=== PATIENT | female | born 1985 | race Caucasian/White ===

== ENCOUNTER 2016-08-07 08:17 | Emergency (ER) | payer BC ==
[2016-08-07] MEDS ORDERED: Lidocaine 2% VISCOUS* 15 ML UDC PO ONE (09:07)
--- NOTE | 2016-08-07 09:24 | UC ---
Leta Coello Salem, scribed for Jennifer Mercer MD on 08/07/16 at 0907 . Throat Pain/Nasal Carlos HPI - HPI Summary HPI Summary: Patient is a 31 y/o female who presents to the with a sore throat and abd pain since more than 4 days ago. She states that she was in the UC 4 days ago for similar sx and tested positive for Influenza B. She reports increased coughing with pain in the throat. She also reports congestion, a subjective fever, nausea, and lower abd pain. Pt with decreased appetite. She is taking Tamiflu for the flu (not today) and Tylenol (which has not been helping the abd pain). She reports drinking tea with honey for the sore throat with mild alleviation and that PO intake has been unchanged from baseline as a result of sx. She denies dysuria, hematuria, or vaginal LOF. 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 LMP was May 27, 2016 and she is 10 weeks, 2 days by dates . Pt is . She had a demise at 38 weeks approximately 1 year ago. She has not seen her RESIDENTIAL SERVICE TECHNICIAN yet, but is scheduled to in 11 days (08/18/16). Patients medication reviewed this visit. Pt takes Levothyroxine. - History of Current Complaint Chief Complaint: UCGeneralIllness Stated Complaint: SORE THROAT ABD PAIN Time Seen by Provider: 08/07/16 08:36 Hx Obtained From: Patient Hx Last Menstrual Period: 05/27/16 Onset/Duration: Gradual Onset, Lasting Days, Still Present Severity: Moderate Cough: Nonproductive Associated Signs & Symptoms: Positive: Fever, Other - Congestion. - Allergies/Home Medications Allergies/Adverse Reactions: Allergies Allergy/AdvReac Type Severity Reaction Status Date / Time No Known Allergies Allergy Verified 08/07/16 08:26 Home Medications: Home Medications Levothyroxine TAB* [Synthroid TAB*] 50 mcg PO 08/07/16 [History] Oseltamivir CAP* [Tamiflu CAP*] 30 mg PO BID 08/07/16 [History Confirmed ] PMH/Surg Hx/FS Hx/Imm Hx Previously Healthy: Yes Endocrine History Of: Reports: Thyroid Disease - hoshimotos; goiter Cardiovascular History Of: Denies: Cardiac Disorders, Hypertension Respiratory History Of: Denies: COPD - Surgical History Surgical History: None - Family History Known Family History: Positive: Hypertension, Renal Disease - kidney stones - Social History Occupation: Employed Full-time - cross fit Alcohol Use: None Substance Use Type: None Smoking Status (MU): Former Smoker Review of Systems Constitutional: Fever Skin: Negative Eyes: Negative ENT: Sore Throat Respiratory: Cough Cardiovascular: Negative Gastrointestinal: Abdominal Pain, Other - Nausea. Genitourinary: Negative Motor: Negative Neurovascular: Negative Musculoskeletal: Negative Neurological: Negative Psychological: Negative All Other Systems Reviewed And Are Negative: Yes Physical Exam Triage Information Reviewed: Yes Completion Of Physical Exam Limited Due To: Altered Mental Status Appearance: Well-Appearing, No Pain Distress, Well-Nourished Vital Signs: Initial Vital Signs Temp 99.1 F 08/07/16 08:21 Pulse 67 08/07/16 08:21 Resp 18 08/07/16 08:21 BP 110/69 08/07/16 08:21 Pulse Ox 100 08/07/16 08:21 Vital Signs Reviewed: Yes Eye Exam: Normal Eyes: Positive: Conjunctiva Clear ENT Exam: Normal ENT: Positive: TMs normal. Negative: Pharynx normal - erythema, no exudate, no fullness; uvula midline Dental Exam: Normal Neck exam: Normal Neck: Positive: Supple, Nontender, No Lymphadenopathy Respiratory Exam: Normal Respiratory: Positive: Lungs clear Cardiovascular Exam: Normal Cardiovascular: Positive: RRR, No Murmur Abdominal Exam: Normal Abdomen Description: Negative: Nontender - + TTP LLQ no guarding, no rebound, no distension soft + BS Bowel Sounds: Positive: Present Musculoskeletal Exam: Normal Neurological Exam: Normal Neurological: Positive: Alert, Muscle Tone Normal Psychological Exam: Normal Skin Exam: Normal Throat Pain/Nasal Course/Dx - Course Assessment/Plan: PT recently dx with influenza B - pt on Tamiflu. Pt is 10 week by dates - no care yet this - pt with pain in LLQ increasing x 4 days with nausea. Will check throat for strep. viscous lidocaine for symptomatic relief. Will refer to [facility] for ultrasound to eval for ectopic and health - pt comfortable and in agreement with plan. Spoke with Dr. Palafox - [facility] - accepting pt in transfer for further eval - Differential Dx/Diagnosis Provider Diagnoses: pharyngitis. adominal pain. 1st trimester Discharge - Discharge Plan Condition: Stable Disposition: TRANS HIGHER LVL OF CARE FAC Discharge Disposition Comment: pt referred to [facility] for ultrasound and further eval or abd pain Patient Education Materials: Pharyngitis (ED), Acute Abdominal Pain (ED), (ED) Additional Instructions: - Okay to gargle and salt with warm, salt water - Complete course of Tamiflu as previously prescribed - Stay well hydrated - avoid excess caffeine and alcohol - Okay to take Tylenol every 6 hours pain or fever - Cold fluids (popsicles, jello) may be soothing to your throat - Once you start to feel better, change your toothbrush and your pillowcase. These infections are spread by secretions - do NOT share eating or drinking utensils - clean items you share with other people such as iphone, computer mouse, TV remote, etc - Go directly to the emergency department at [facility] - they are expecting you for further evaluation of your The documentation as recorded by the Leat flor Salem accurately reflects the service I personally performed and the decisions made by me, Jennifer Mercer MD.
[2016-08-07 09:37] VITALS: BP 129/77
== END 2016-08-07 09:28 | disposition short-term general hospital (02) ==
LOC: UCEAST 08:17
DX: O26.891 Other specified pregnancy related conditions, first trimester (principal); Z3A.10 10 weeks gestation of pregnancy; J02.9 Acute pharyngitis, unspecified; R10.9 Unspecified abdominal pain
CPT/HCPCS: 87070; 87651; 99212; G0463

== ENCOUNTER 2016-08-07 09:50 | Emergency (ER) | payer BC ==
[2016-08-07] MEDS ORDERED: NS 0.9% 1000 ML* 1,000 ML IV ONE (10:04)
[2016-08-07 10:39] LABS: Add Diff/Slide Review? Slide Review Added; Comments Flag Yes; Hematocrit 41 % (35-47); Hemoglobin 14.1 g/dl (12.0-16.0); Mean Corpuscular HGB Conc 34 g/dl (31-36); Mean Corpuscular Hemoglobin 30 pg (27-31); Mean Corpuscular Volume 87 fL (80-97); Mean Platelet Volume 9 um3 (7.4-10.4); Red Blood Count 4.76 10^6/ul (4.0-5.4); Red Cell Distribution Width 13 % (10.5-15); White Blood Count 2.5 10^3/ul (3.5-10.8)
[2016-08-07 10:48] LABS: Budding Yeast Present (Absent); Urine Bacteria Absent (Absent); Urine Bilirubin Negative (Negative); Urine Glucose Negative (Negative); Urine Nitrite Negative (Negative)
[2016-08-07 12:06] LABS: Albumin 3.9 g/dL (3.2-5.2); BUN/Creatinine Ratio 12.5 (8-20); Calcium 8.7 mg/dL (8.6-10.3); EGFR African American 140.1 (>60); Globulin 2.6 g/dL (2-4); Potassium 3.8 mmol/L (3.5-5.0); Total Bilirubin 0.3 mg/dL (0.2-1.0); Total Protein 6.5 g/dL (6.4-8.9)
--- NOTE | 2016-08-07 13:44 | RAD ---
HISTORY: Lower abdominal pain, COMPARISONS: None relevant TECHNIQUE: Multiple transverse and longitudinal ultrasound images were obtained of the pelvis using grayscale, color Doppler, and M-Mode Doppler imaging using the transabdominal transducer. FINDINGS: UTERUS: The uterus is normal in shape, size, contour, and echotexture. GESTATION: There is a single live intrauterine gestation. The crown-rump length measures 2.89 cm for a gestational age of 9 weeks and 6 days. The PEPE is March 06, 2017. cardiac motion is detected at a rate of 174 beats per minute. Gross movement is identified. anatomy cannot be assessed secondary to early dates. The amniotic fluid is qualitatively normal. There is a small subchorionic hemorrhage measuring approximately 0.9 cm. CUL-DE-SAC: There is no free fluid within the cul-de-sac. RIGHT OVARY: The right ovary measures 3.7 x 2.5 x 1.8 cm. LEFT OVARY: The left ovary measures 3.1 x 1.8 x 4.6 cm. A corpus luteal body is noted. BLADDER: The visualized bladder is unremarkable. IMPRESSION: 1. SINGLE LIVE INTRAUTERINE GESTATION AT 9 WEEKS AND 6 DAYS BY CROWN-RUMP LENGTH. 2. SMALL SUBCHORIONIC HEMORRHAGE.
[2016-08-07 15:54] VITALS: BP 108/58
--- NOTE | 2016-08-18 13:24 | ED ---
Kashif Coello Janilya, scribed for Sheng Palafox MD on 08/07/16 at 1004 . Abdominal Pain/Female - HPI Summary HPI Summary: A 31 y/o female came in to [facility] presenting w/ a gradual onset of constant abd pain for about 3 days. She states she had flu this Tuesday, 08/04. She was seen at [facility] and prescribed TamiFlu which made pt feel better. Although, pt still felt congested, so she visited [facility] today for checkup. There, she discovered that she also has LLQ abd pain. Earlier she has been experiencing only lower abd pain bilaterally when coughing, but with pressure and palpation, she felt more pain in LLQ. Severity rated 2/10. Pt denies vaginal discharge, vaginal bleeding, vomiting, diarrhea. Pt is 10 weeks . /para/abortus . LNMP started May 27, 2016. - History of Current Complaint Chief Complaint: EDAbdPain Stated Complaint: ABD PAIN, COMMING FROM CC Time Seen by Provider: 08/07/16 09:57 Hx Obtained From: Patient Hx Last Menstrual Period: 05/27/16 ?: Yes Onset/Duration: Gradual Onset, Lasting Hours, Still Present Timing: Constant Severity Initially: Moderate Severity Currently: Moderate Pain Intensity: 2 Pain Scale Used: 0-10 Numeric Location: Discrete At: LLQ Radiates: Yes Radiates to: Other - lower abd bilaterally Character: Dull Aggravating Factor(s): Nothing Alleviating Factor(s): Nothing Associated Signs and Symptoms: Positive: Nausea. Negative: Vaginal Bleeding Allergies/Adverse Reactions: Allergies Allergy/AdvReac Type Severity Reaction Status Date / Time No Known Allergies Allergy Verified 08/07/16 09:54 PMH/Surg Hx/FS Hx/Imm Hx Previously Healthy: Yes Endocrine/Hematology History: Reports: Hx Thyroid Disease - hoshimotos; goiter Cardiovascular History: Denies: Hx Hypertension Respiratory History: Denies: Hx Chronic Obstructive Pulmonary Disease (COPD) Infectious Disease History: Denies: History Other Infectious Disease, Traveled Outside the [place] in Last 30 Days - Family History Known Family History: Positive: Hypertension, Renal Disease - kidney stones - Social History Alcohol Use: None Substance Use Type: Reports: None Smoking Status (MU): Former Smoker Review of Systems Positive: Abdominal Pain, Nausea. Negative: Vomiting, Diarrhea Genitourinary: Negative - pt denies vaginal bleeding Negative: discharge All Other Systems Reviewed And Are Negative: Yes Physical Exam - Summary Physical Exam Summary: VITAL SIGNS: Reviewed. GENERAL: Patient is a well developed and nourished female who is lying comfortable in the stretcher. Patient is not in any acute respiratory distress. HEAD AND FACE: Normocephalic and atraumatic. EYES: PERRLA, EOMI x 2, No injected conjunctiva. EARS: Hearing grossly intact. Ear canals and tympanic membranes are WNL. MOUTH: Oropharynx within normal limits. NECK: Supple, trachea is midline, no adenopathy, no JVD. CHEST: Symmetric, no tenderness at palpation LUNGS: Clear to auscultation bilaterally. No wheezing or crackles. CVS: RRR,, S1 and S2 present, no murmurs or gallops appreciated. ABDOMEN: Soft, mild lower abdominal tenderness. No signs of distention. Positive bowel sounds. No rebound no guarding, and no masses palpated. No abdominal bruit or pulsations. EXTREMITIES: FROM in all major joints, no edema, no cyanosis or clubbing. NEURO: Alert and oriented x 3. No acute neurological deficits. Speech is normal. SKIN: Dry and warm Triage Information Reviewed: Yes Vital Signs On Initial Exam: Initial Vitals Temp Pulse Resp BP Pulse Ox 97.6 F 69 15 134/68 100 08/07/16 09:51 08/07/16 09:51 08/07/16 09:51 08/07/16 09:51 08/07/16 09:51 Vital Signs Reviewed: Yes Diagnostics - Vital Signs Vital Signs Temp Pulse Resp BP Pulse Ox 08/07/16 09:51 97.6 F 69 15 134/68 100 - Laboratory Result Diagrams: 08/07/16 10:26 08/07/16 10:26 Lab Statement: Any lab studies that have been ordered have been reviewed, and results considered in the medical decision making process. - Ultrasound No standard instances Ultrasound Interpretation: No Acute Changes - US IMPRESSION: 1. SINGLE LIVE INTRAUTERINE GESTATION AT 9 WEEKS AND 6 DAYS BY CROWN-RUMP LENGTH. 2. SMALL SUBCHORIONIC HEMORRHAGE. Ultrasound Interpretation Completed By: Radiologist Abdominal Pain Fem Course/Dx - Course Course Of Treatment: A 31 y/o female came in to [facility] presenting w/ a gradual onset of constant abd pain for about 3 days. She states she had flu this Tuesday, 08/04. She was seen at [facility] and prescribed TamiFlu which made pt feel better. Although, pt still felt congested, so she visited [facility] today for checkup. There, she discovered that she also has LLQ abd pain. Earlier she has been experiencing only lower abd pain bilaterally when coughing, but with pressure and palpation, she felt more pain in LLQ. Severity rated 2/10. Pt denies vaginal discharge, vaginal bleeding, vomiting, diarrhea. Pt is 10 weeks . /para/abortus . LNMP started May 27, 2016. US IMPRESSION shows: 1. SINGLE LIVE INTRAUTERINE GESTATION AT 9 WEEKS AND 6 DAYS BY CROWN-RUMP LENGTH. 2. SMALL SUBCHORIONIC HEMORRHAGE. Blood work within normal limits, except for the following: WBC 2. 5L. absolute neuts 1.1L. urinalysis was contaminated therefore we will await for urine cultures. In the ED course, pt was given IV fluids of normal saline. Pt is hydrated, feeling better, not triny. I discussed the case with Dr. Rosa covering for Dr. Wallace and she agrees with management and discharge to f/u with Dr. Wallace. Pt is AxOx3 and hemodynamically stable. Pt will be discharged home w/ f/u w/ her OB /SERVICE MECHANIC Dr. Wallace in 2 days. She was given isntructions to return to the ED if she develops any vaginal bleeding or diascharge, abdominal or pelvic contractions. No heavy lifting, no intercourse until cleared by Dr. Wallace. - Diagnoses Differential Diagnosis: Positive: Ectopic , Ovarian Cyst, Provider Diagnoses: THREATENED MISCARRIAGE,ABD.PAIN - Provider Notifications Discussed Care Of Patient With: Dr. Rosa (JAVA XML DEVELOPER) at 1455: discussed pt's condition; she recommended dx home. Discharge - Discharge Plan Condition: Stable Disposition: HOME Patient Education Materials: Threatened Miscarriage (ED), Abdominal Pain (ED) Referrals: Domingo Russ NP [Primary Care Provider] - 2 Days Chika Wallace MD [Medical Doctor] - 2 Days The documentation as recorded by the Kashif flor Janilya accurately reflects the service I personally performed and the decisions made by me, Sheng Palafox MD.
== END 2016-08-07 15:52 | disposition home or self-care (01) ==
LOC: ED 09:50
DX: O20.0 Threatened abortion (principal); R10.32 Left lower quadrant pain; R11.0 Nausea; R19.7 Diarrhea, unspecified; Z3A.00 Weeks of gestation of pregnancy not specified
CPT/HCPCS: 36415; 76801; 80053; 81003; 81015; 84702; 85025; 87086; 96360; 99282

== ENCOUNTER 2016-09-22 11:07 | Emergency (ER) | payer BC ==
[2016-09-22 11:16] VITALS: BP 137/73
[2016-09-22] MEDS ORDERED: NS 0.9% 1000 ML* 2,000 ML IV ONE (12:20)
[2016-09-22] MEDS ORDERED: diPHENhydraMINE IV* 50 MG/ML 1 ml VIAL (BENADRYL) SLOW PUSH ONE (12:37)
[2016-09-22] MEDS ORDERED: Metoclopramide IV* 5 MG/ML 2 ML VIAL IV SLOW PU ONE (12:37)
[2016-09-22 13:20] LABS: Hematocrit 41 % (35-47); Hemoglobin 14.2 g/dl (12.0-16.0); Mean Corpuscular HGB Conc 35 g/dl (31-36); Mean Corpuscular Hemoglobin 31 pg (27-31); Mean Corpuscular Volume 89 fL (80-97); Mean Platelet Volume 8 um3 (7.4-10.4); Red Cell Distribution Width 14 % (10.5-15); White Blood Count 8.3 10^3/ul (3.5-10.8)
[2016-09-22 13:40] LABS: Albumin 3.8 g/dL (3.2-5.2); BUN/Creatinine Ratio 16.1 (8-20); Calcium 8.7 mg/dL (8.6-10.3); EGFR African American 145.4 (>60); Potassium 3.8 mmol/L (3.5-5.0); Total Bilirubin 0.4 mg/dL (0.2-1.0); Total Protein 6.8 g/dL (6.4-8.9)
--- NOTE | 2016-09-22 13:43 | ED ---
Headache - HPI Summary HPI Summary: 31F presents with migraine today since 3am. has history of migraine. states that pain is on left side of face and that radiates to neck. She states nothing different about this migraine than typical migraines. she states she used to use an excredrin like product but now that she is she just uses Tylenol. She denies any fever. She admits to n/v and photophobia. She denies any visual changes. She denies any family history of SAH. - History Of Current Complaint Chief Complaint: EDHeadache Stated Complaint: 16WKS PREG/HEADACHE/VOMITING Time Seen by Provider: 09/22/16 12:20 Hx Last Menstrual Period: 10 weeks - Allergies/Home Medications Allergies/Adverse Reactions: Allergies Allergy/AdvReac Type Severity Reaction Status Date / Time No Known Allergies Allergy Verified 08/07/16 09:54 PMH/Surg Hx/FS Hx/Imm Hx Endocrine/Hematology History: Reports: Hx Thyroid Disease Cardiovascular History: Denies: Hx Hypertension Respiratory History: Denies: Hx Chronic Obstructive Pulmonary Disease (COPD) Infectious Disease History: No Infectious Disease History: Denies: History Other Infectious Disease, Traveled Outside the [place] in Last 30 Days - Family History Known Family History: Positive: Hypertension, Renal Disease - kidney stones Negative: Blood Disorder - Social History Alcohol Use: None Substance Use Type: Reports: None Smoking Status (MU): Never Smoked Tobacco Review of Systems Negative: Fever Positive: Photophobia. Negative: Blurred Vision Negative: Chest Pain Negative: Shortness Of Breath Positive: Headache All Other Systems Reviewed And Are Negative: Yes Physical Exam Triage Information Reviewed: Yes Vital Signs On Initial Exam: Initial Vitals Temp Pulse BP Pulse Ox 98.4 F 71 137/73 100 09/22/16 11:13 09/22/16 11:13 09/22/16 11:13 09/22/16 11:13 Vital Signs Reviewed: Yes Appearance: Positive: Well-Appearing Skin: Positive: Warm, Dry Head/Face: Positive: Normal Head/Face Inspection Eyes: Positive: Normal, EOMI, BHAVYA, Conjunctiva Clear ENT: Positive: Normal ENT inspection, Pharynx normal, TMs normal Neck: Positive: Supple, Nontender, No Lymphadenopathy Respiratory/Lung Sounds: Positive: Clear to Auscultation, Breath Sounds Present Cardiovascular: Positive: Normal, RRR Neurological: Positive: Sensory/Motor Intact, Alert, Oriented to Person Place, Time, CN Intact II-III - Sharon Coma Scale Best Eye Response: 4 - Spontaneous Best Motor Response: 6 - Obeys Commands Best Verbal Response: 5 - Oriented Diagnostics - Vital Signs Vital Signs Temp Pulse Resp BP Pulse Ox 09/22/16 13:01 98.4 F 78 16 137/73 100 09/22/16 11:13 98.4 F 71 137/73 100 - Laboratory Lab Results: Lab Results 09/22/16 Range/Units 13:00 WBC 8.3 (3.5-10.8) 10^3/ul RBC 4.60 (4.0-5.4) 10^6/ul Hgb 14.2 (12.0-16.0) g/dl Hct 41 (35-47) % MCV 89 (80-97) fL MCH 31 (27-31) pg MCHC 35 (31-36) g/dl RDW 14 (10.5-15) % Plt Count 216 (150-450) 10^3/ul MPV 8 (7.4-10.4) um3 Neut % (Auto) 88.2 H (38-83) % Lymph % (Auto) 8.0 L (25-47) % [place] % (Auto) 3.1 (1-9) % Eos % (Auto) 0.1 (0-6) % Baso % (Auto) 0.6 (0-2) % Absolute Neuts (auto) 7.4 (1.5-7.7) 10^3/ul Absolute Lymphs (auto) 0.7 L (1.0-4.8) 10^3/ul Absolute Monos (auto) 0.3 (0-0.8) 10^3/ul Absolute Eos (auto) 0 (0-0.6) 10^3/ul Absolute Basos (auto) 0 (0-0.2) 10^3/ul Absolute Nucleated RBC 0 10^3/ul Nucleated RBC % 0 Result Diagrams: 09/22/16 13:00 09/22/16 13:00 Lab Statement: Any lab studies that have been ordered have been reviewed, and results considered in the medical decision making process. Re-Evaluation - Re-Evaluation First Eval Re-Evaluation Time: 14:38 Change: Improved Comment: pain is now a 3, patient states ready to go home Headache Course/Dx - Course Course Of Treatment: 31F at 17weeks presents with typical migraine not relieved with tyenlol. states only thing different is radiates to neck. normal neuro exam. labs do not suggest mengitidis, gave reglan, bendaryl, fluids and migraine resolved. patient understands and agrees with plan - Diagnoses Differential Diagnosis/HQI/PQRI: Meningitis, Migraine, Tension Headache Provider Diagnoses: Headache Discharge - Discharge Plan Condition: Good Disposition: HOME Prescriptions: Metoclopramide TAB* [Reglan TAB*] 5 mg PO Q6H PRN #10 tab PRN Reason: Nausea Patient Education Materials: Migraine Headache (ED) Referrals: Domingo Russ NP [Primary Care Provider] - Additional Instructions: Take Tylenol every 6 hours for headache, take Benadryl and Reglan if migraine returns and drink plenty of fluids Follow up with primary within 5 days Return to ED if develop fever or any new or worsening symptoms
[2016-09-22 13:54] LABS: C Reactive Protein 3.22 mg/L (< 5.00)
[2016-09-22] MEDS ORDERED: Acetaminophen TAB* 325 MG PO ONE (14:39)
== END 2016-09-22 15:18 | disposition home or self-care (01) ==
LOC: ED 11:07
DX: O26.892 Other specified pregnancy related conditions, second trimester (principal); G43.909 Migraine, unspecified, not intractable, without status migrainosus; Z3A.17 17 weeks gestation of pregnancy
CPT/HCPCS: 36415; 80053; 85025; 86140; 96360; 96374; 96375; 99283; A9270-GY; J1200

== ENCOUNTER 2017-01-08 07:23 | Emergency (ER) | payer BC ==
[2017-01-08 07:57] VITALS: BP 116/67
--- NOTE | 2017-01-08 11:03 | UC ---
Bebeto Coello Nikita, scribed for Maribeth Hines DO on 01/08/17 at 0830 . Throat Pain/Nasal Carlos HPI - HPI Summary HPI Summary: This patient is a 32 year old F presenting to [facility] with a chief complaint of sinus infection since 1 month ago. Pt went to [facility] when symptoms first arose. Pt was given Amoxicillin which relieved the pain (not 100%). For the past week, pt started feeling symptoms again, but worse. The CC is described as everything is swollen in her head/face and uncomfortable. The patient rates the pain 4/10 in severity. Symptoms aggravated by nothing. Symptoms alleviated by nothing (Amoxicillin helped previous symptoms, but hasnt taken anything for reoccurring symptoms). Patient reports fatigue, decreased sleep, sore throat, nasal congestion, fever, chills, and sinus pressure. Patient denies ear ache, abdominal pain, N/V/D, swelling of hnds and feet, BREAUX, blurred vision, cough, contractions, and vaginal bleeding. - History of Current Complaint Chief Complaint: UCRespiratory Stated Complaint: SINUS INFECTION Time Seen by Provider: 01/08/17 08:05 Hx Obtained From: Patient Hx Last Menstrual Period: 10 weeks ?: Yes Onset/Duration: Sudden Onset - 1 month ago (didn't fully go away), 1 week ago came back, Lasting Weeks, Still Present Pain Intensity: 4 Pain Scale Used: 0-10 Numeric Cough: None Associated Signs & Symptoms: Positive: Dysphagia - mild, Sinus Discomfort, Nasal Discharge, Other - Patient reports fatigue, decreased sleep, sore throat, nasal congestion, fever, chills, and sinus pressure. Patient denies ear ache, abdominal pain, N/V/D, swelling, BREAUX, blurred vision, cough, contractions, and vaginal bleeding.. Negative: Drooling, Wheezing, Hoarseness, Fever, Vomiting, Rash - Allergies/Home Medications Allergies/Adverse Reactions: Allergies Allergy/AdvReac Type Severity Reaction Status Date / Time No Known Allergies Allergy Verified 08/07/16 09:54 PMH/Surg Hx/FS Hx/Imm Hx Endocrine History: Thyroid Disease, Hyperthyroidism Other Endocrine History: [facility] GI/ History: Other Other GI/ History: Past (gestation, at 38 weeks) - Surgical History Surgical History: None - Family History Known Family History: Positive: Hypertension, Renal Disease - kidney stones Negative: Blood Disorder - Social History Alcohol Use: None Substance Use Type: None Smoking Status (MU): Never Smoked Tobacco Review of Systems Constitutional: Fever, Chills, Fatigue ENT: Sore Throat, Sinus Congestion, Sinus Pain/Tenderness Respiratory: Negative Cardiovascular: Negative Gastrointestinal: Other - Denies abdominal pain, N/V/D Genitourinary: Other - Denies contractions and vaginal bleeding Neurological: Other - Decreased sleep; Denies BREAUX, blurred vision All Other Systems Reviewed And Are Negative: Yes Physical Exam Triage Information Reviewed: Yes Vital Signs: Initial Vital Signs Temp 97.4 F 01/08/17 07:52 Pulse 74 01/08/17 07:52 Resp 16 01/08/17 07:52 BP 116/67 01/08/17 07:52 Pulse Ox 99 01/08/17 07:52 - Additional Comments Appearance: Well-Appearing, No Pain Distress, Well-Nourished Eyes: periorbital edema ENT: Maxillary sinus tenderness (Left worse than Right), pale and boggy nasal mucosa Neck: Normal, Supple Respiratory/Lung Sounds: Lungs clear, Normal breath sounds, No respiratory distress, No accessory muscle use Cardiovascular: RRR, No murmur Musculoskeletal: Normal Neurological: Alert, muscle tone normal Psychiatric: Normal, age appropriate behavior Skin: Normal, other -- Warm, Dry, Normal color Throat Pain/Nasal Course/Dx - Course Assessment/Plan: This patient is a 32 year old F presenting to [facility] with a chief complaint of sinus infection since 1 month ago. Pt went to [facility] when symptoms first arose. Pt was given Amoxicillin which relieved the pain (not 100% ). For the past week, pt started feeling symptoms again, but worse. The CC is described as everything is swollen and uncomfortable. The patient rates the pain 0/10 in severity. Symptoms aggravated by nothing. Symptoms alleviated by nothing (Amoxicillin helped previous symptoms, but hasnt taken anything for reoccurring symptoms). Patient reports fatigue, decreased sleep, sore throat, nasal congestion, fever, chills, and sinus pressure. Patient denies ear ache, abdominal pain, N/V/D, swelling, BREAUX, blurred vision, cough, contractions, and vaginal bleeding. heart rate was 140. Blood pressure noted. Medications reviewed this visit. In the course, pt was advised that she will be given allergy medicine and Augmentin. It was advised that she try not to use the Augmentin. Pt will be discharged. Pt is agreeable with this plan. - Differential Dx/Diagnosis Differential Diagnosis/HQI/PQRI: Pharyngitis, Sinusitis, URI Provider Diagnoses: Sinusitis and allergies. Discharge - Discharge Plan Condition: Stable Disposition: HOME Prescriptions: Amoxicillin/Clavulanate TAB* [Augmentin TAB 875*] 875 mg PO BID #20 tab Patient Education Materials: Sinusitis (ED), Allergies (ED) Referrals: Domingo Russ, KIER PLEATER [Primary Care Provider] - If Needed Additional Instructions: TRY USING THE NETTI POT IN THE MORNINGS DISCUSSED. YOU MUST ALWAYS USE CLEAN WATER. REMEMBER, POSTURE IS AN IMPORTANT FACTOR IN SINUS DRAINAGE. MOVE YOUR NECK, BREATHE. YOU CAN TRY ZYRTEC FOR YOUR ALLERGIES... Implications Maternal use of cetirizine has not been associated with an increased risk of major malformations. Cetirizine(ZIRTEC) may be used for the treatment of rhinitis and urticaria during (NAEPP 2005; Blake 2008; Castillo 2014). ANTIBIOTICS ARE NOT CURRENTLY INDICATED FOR YOUR CONDITION. HOWEVER, IF YOUR SYMPTOMS WORSEN OR PERSIST FOR OVER THE NEXT 3-5 DAYS, YOU CAN TAKE THE FOLLOWING MEDICATION: AUGMENTIN: Augmentin is a mixture of amoxicillin and clavulanate. Amoxicillin is a member of the penicillin family. It covers the germs likely to cause ear, bronchial, and urinary infections better than plain penicillin. The addition of clavulanate allows it to cover staph infections of the skin, as well as resistant cases of ear and sinus infections. Your physician has chosen Augmentin for you because of the special nature of your situation. Augmentin is best taken with meals. Nausea after taking the medication is rare, but can occur. Diarrhea can occur, particularly in small children. Vaginal yeast infections, and oral thrush in infants are also common. Contact your physician if these problems occur. Allergy to penicillins is common. If you have had an allergic reaction to any drug of the penicillin family, you should never take any other penicillin. Notify your doctor at once if you develop hives, shortness of breath, swelling, or faintness. ANYTIME YOU TAKE AN ANTIBIOTIC, IT IS IMPORTANT TO REPLENISH THE BODY'S SUPPLY OF "GOOD BACTERIA." YOU CAN GET GOOD BACTERIA FROM HIGH QUALITY CULTURED FOODS SUCH LOCAL YOGURT, SOUR KRAUT, AVISHALI JIMBO, NATURALLY FERMENTED PICKLES AND PROBIOTIC DRINKS. YOU CAN ALSO GET GOOD BACTERIA FROM A PROBIOTIC SUPPLEMENT. Your blood pressure was elevated at this visit. That does not mean you have hypertension, it is probably due to your current condition. Please follow up with your primary care provider. The documentation as recorded by the Bebeto flor Nikita accurately reflects the service I personally performed and the decisions made by me, Maribeth Hines DO.
== END 2017-01-08 09:09 | disposition home or self-care (01) ==
LOC: UCEAST 07:23
DX: O26.893 Other specified pregnancy related conditions, third trimester (principal); J32.9 Chronic sinusitis, unspecified; J30.9 Allergic rhinitis, unspecified; Z3A.32 32 weeks gestation of pregnancy
CPT/HCPCS: 99212; G0463

== ENCOUNTER 2017-02-19 09:13 | Inpatient (IN) | payer BC ==
[2017-02-19] MEDS ORDERED: Oxytocin in LR* 20 UNITS/1,000 ML BAG IVPB ONE (09:49)
[2017-02-19] MEDS ORDERED: Oxytocin in LR* 20 UNITS/1,000 ML BAG IVPB SCH (10:00)
[2017-02-19 11:12] LABS: Hematocrit 37 % (35-47); Hemoglobin 12.7 g/dl (12.0-16.0); Mean Corpuscular HGB Conc 34 g/dl (31-36); Mean Corpuscular Hemoglobin 31 pg (27-31); Mean Corpuscular Volume 91 fL (80-97); Mean Platelet Volume 8 um3 (7.4-10.4); Red Blood Count 4.12 10^6/ul (4.0-5.4); Red Cell Distribution Width 13 % (10.5-15); White Blood Count 7.2 10^3/ul (3.5-10.8)
[2017-02-19] MEDS ORDERED: Acetaminophen TAB* 325 MG PO ONE (13:05)
[2017-02-19] MEDS ORDERED: OBEPIDURAL* 250 ML ONE (18:44)
[2017-02-19] MEDS ORDERED: Phenylephrine IV* 40 MCG/ML 10 ML SYRINGE IV PUSH PRN (19:29)
[2017-02-19] MEDS ORDERED: Famotidine TAB* 20 MG PO PRN (19:29)
[2017-02-19] MEDS ORDERED: Sodium Citrate/Citric Acid* 15 ML UDC PO PRN (19:29)
[2017-02-19] MEDS ORDERED: OBEPIDURAL* 250 ML EPIDURAL SCH (20:00)
[2017-02-20] MEDS ORDERED: Dibucaine 1% 28.35 GM TUBE PR PRN (05:38)
[2017-02-20] MEDS ORDERED: Witch Hazel PAD* JAR TOPICAL PRN (05:38)
[2017-02-20] MEDS ORDERED: Tetan/Diph/Pertus SYR(Tdap)* 0.5 ML SYR(BOOSTRIX) use SYR IM ONE (05:38)
[2017-02-20] MEDS ORDERED: Oxytocin in LR* 20 UNITS/1,000 ML BAG IVPB SCH (06:00)
[2017-02-20] MEDS: Ibuprofen TAB* 600 MG PO PRN ×3 (06:02→18:20)
[2017-02-20] MEDS: Levothyroxine TAB* 75 MCG TAB PO SCH (07:41)
[2017-02-20] MEDS ORDERED: Simethicone TAB* 80 MG TAB.CHEW PO SCH (08:30)
[2017-02-20] MEDS: Docusate CAP* 100 MG PO SCH ×3 (09:12→20:20)
[2017-02-20] MEDS: Acetaminophen TAB* 325 MG PO PRN (20:20)
[2017-02-21] MEDS: Acetaminophen TAB* 325 MG PO PRN (06:04)
[2017-02-21] MEDS: Ibuprofen TAB* 600 MG PO PRN ×3 (06:04→18:38)
[2017-02-21] MEDS: Levothyroxine TAB* 75 MCG TAB PO SCH (07:09)
[2017-02-21 07:22] LABS: Hematocrit 34 % (35-47); Hemoglobin 11.5 g/dl (12.0-16.0); Mean Corpuscular HGB Conc 34 g/dl (31-36); Mean Corpuscular Hemoglobin 31 pg (27-31); Mean Corpuscular Volume 91 fL (80-97); Mean Platelet Volume 8 um3 (7.4-10.4); Red Blood Count 3.69 10^6/ul (4.0-5.4); Red Cell Distribution Width 13 % (10.5-15); White Blood Count 6.5 10^3/ul (3.5-10.8)
[2017-02-21] MEDS: Docusate CAP* 100 MG PO SCH ×2 (08:08→12:56)
[2017-02-21 08:23] VITALS: BP 104/79
[2017-02-21] MEDS ORDERED: Ferrous Gluconate TAB* 324 MG TAB PO SCH (09:00)
== END 2017-02-21 20:23 | disposition home or self-care (01) | DRG 560 ==
LOC: MCHOBOUT 09:13 → MCHOB 09:40
PROVIDERS: ADMIT Obstetrics & Gynecology; ATTEND Obstetrics & Gynecology
PROC: 10E0XZZ Delivery of Products of Conception, External Approach (ICD-10-PCS; principal; 2017-02-20)
PROC: 3E0P3VZ Introduction of Hormone into Female Reproductive, Percutaneous Approach (ICD-10-PCS; 2017-02-20)
DX: O99.284 Endocrine, nutritional and metabolic diseases complicating childbirth (principal); E07.89 Other specified disorders of thyroid; Z3A.38 38 weeks gestation of pregnancy; Z37.0 Single live birth
CPT/HCPCS: 36415; 85025; 86850; 86900; 86901; A9270-GY

== ENCOUNTER 2018-04-11 12:06 | Emergency (ER) | payer SELFPAY ==
--- NOTE | 2018-04-11 14:18 | ED ---
Abdominal Pain/Female - HPI Summary HPI Summary: The pt is a 33 y/o female [facility]/o sudden onset R sided abd pain since 09:45 hrs today. She notes nausea but denies fever, hematuria and vaginal bleeding /discharge, dysuria, constipation, diarrhea, . The pain rated 6/10 in severity radiated to the pelvic region initially. PMHx: kidney stones, ovarian cyst. Home Medications Medication Instructions Recorded Confirmed Type Levothyroxine TAB* [Synthroid TAB*] 80 mcg PO DAILY 08/07/16 04/11/18 History - History of Current Complaint Chief Complaint: EDAbdPain Stated Complaint: ABD PAIN Time Seen by Provider: 04/11/18 14:07 Hx Obtained From: Patient Onset/Duration: Sudden Onset, Lasting Hours Timing: Constant Severity Initially: Severe Severity Currently: Severe Pain Intensity: 8 Pain Scale Used: 0-10 Numeric Location: Diffuse - R side Radiates: Yes Radiates to: Other - Pelvis Aggravating Factor(s): Nothing Alleviating Factor(s): Nothing Allergies/Adverse Reactions: Allergies Allergy/AdvReac Type Severity Reaction Status Date / Time No Known Allergies Allergy Verified 04/11/18 12:31 PMH/Surg Hx/FS Hx/Imm Hx Previously Healthy: No Endocrine/Hematology History: Reports: Hx Thyroid Disease Cardiovascular History: Denies: Hx Hypertension Respiratory History: Denies: Hx Chronic Obstructive Pulmonary Disease (COPD) - Cancer History Cancer Type, Location and Year: None reported - Surgical History Surgery Procedure, Year, and Place: None reported Infectious Disease History: No Infectious Disease History: Denies: History Other Infectious Disease, Traveled Outside the [place] in Last 30 Days - Family History Known Family History: Positive: Hypertension, Renal Disease - kidney stones Negative: Blood Disorder - Social History Occupation: Employed Part-time Lives: With Family Alcohol Use: None Substance Use Type: Reports: None Smoking Status (MU): Never Smoked Tobacco Have You Smoked in the Last Year: No Review of Systems Positive: Abdominal Pain - R sided , Nausea. Negative: Vomiting, Diarrhea Genitourinary: Negative - Vaginal bleeding/ discharge, constipation, Negative: dysuria, hematuria All Other Systems Reviewed And Are Negative: Yes Physical Exam - Summary Physical Exam Summary: Appearance: Well appearing, no pain distress Skin: warm, dry, reflects adequate perfusion Head/face: normal Eyes: EOMI, BHAVYA ENT: normal Neck: supple, non-tender Respiratory: CTA, breath sounds present Cardiovascular: RRR, pulses symmetrical Abdomen: tender in the R flank, Musculoskeletal: normal, strength/ROM intact Neuro: normal, sensory motor intact, A&Ox3 Triage Information Reviewed: Yes Vital Signs On Initial Exam: Initial Vitals Temp Pulse Resp BP Pulse Ox 98.2 F 70 16 121/70 100 04/11/18 12:28 04/11/18 12:28 04/11/18 12:28 04/11/18 12:28 04/11/18 12:28 Vital Signs Reviewed: Yes Diagnostics - Vital Signs Vital Signs Temp Pulse Resp BP Pulse Ox 04/11/18 12:28 98.2 F 70 16 121/70 100 - Laboratory Result Diagrams: 04/11/18 14:39 04/11/18 14:39 Lab Statement: Any lab studies that have been ordered have been reviewed, and results considered in the medical decision making process. - Ultrasound No standard instances Ultrasound Interpretation Completed By: Radiologist Summary of Ultrasound Findings: Pelvis US IMPRESSION: Normal and age- appropriate pelvic ultrasound including what appears to be an involuting right ovarian follicle. Renal US IMPRESSION: There is trace free fluid along the anterior superior pole of the otherwisenormal-appearing right kidney. The ED physician reviewed this radiology reports. Re-Evaluation - Re-Evaluation First Eval Re-Evaluation Time: 15:00 Change: Unchanged - The pt declines a CT scan due to lack of health insurance. She requests an US instead. Second Eval Re-Evaluation Time: 17:32 Change: Unchanged - The pt declines a CT. She wants to wait for the next 48 hours. Abdominal Pain Fem Course/Dx - Course Course Of Treatment: A 33 year-old F presents to the ED with a CC of sudden onset R sided abd pain since 09:45 hrs today. She notes nausea but denies fever , hematuria and vaginal bleeding/ discharge, dysuria, constipation, diarrhea, . A physical exam revealed tenderness in the R flank. A pelvis US is unremarkable. A bladder US reveals a trace free fluid along the anterior superior pole of the otherwise normal-appearing right kidney. In the ED course , pt was given N.s 0.9 % 1000 ml IV, Ketorolac 30 mg IV, Morphine 4 mg IV and Ondansetron 4 mg IV which improved the symptoms. Patient will be discharged with a final Dx of abd pain, rule out appendicitis. pt do not want ct of abd/ pelvis because she do not have insurance so will dc and advised to come back if symptoms gets worse in the next 24 hrs. pt aware of the complications and sepsis and ,. - Diagnoses Differential Diagnosis: Positive: Appendicitis, Diverticulitis, Ovarian Cyst, Renal Colic, Urinary Tract Infection Provider Diagnoses: Abdominal pain Discharge - Sign-Out/Discharge Documenting (check all that apply): Patient Departure - DC - Discharge Plan Condition: Stable Disposition: HOME Patient Education Materials: Abdominal Pain (ED) Referrals: [facility] [Outside] Additional Instructions: Follow up with PCP in 2 days Return to ED in case of any new pain within the next 24-48 hours. - Billing Disposition and Condition Condition: STABLE Disposition: Home - Attestation Statements Document Initiated by Nory: Yes Documenting Scribe: Cherry Salazar Provider For Whom Nory is Documenting (Include Credential): Dr. Ariel White MD Scribe Attestation: Cherry Coello scribed for Dr. Ariel White MD on 04/11/18 at 1751. Scribe Documentation Reviewed: Yes Provider Attestation: The documentation as recorded by the Cherry flor accurately reflects the service I personally performed and the decisions made by Dr. Ariel mays MD Status of Scribe Document: Viewed
[2018-04-11] MEDS ORDERED: NS 0.9% 1000 ML* 1,000 ML IV ONE (14:20)
[2018-04-11] MEDS ORDERED: Ondansetron INJ* 2 MG/ML VIAL IV ONE (14:20)
[2018-04-11] MEDS ORDERED: Ketorolac INJ* 30 MG/ML 1 ML VIAL IV ONE (14:20)
[2018-04-11] MEDS ORDERED: Morphine VIAL* 4 MG/ML VIAL (1 ml vial) IV ONE (14:21)
[2018-04-11 14:51] LABS: ABS Basophils 0 10^3/ul (0-0.2); ABS Eosinophils 0.1 10^3/ul (0-0.6); ABS Lymphocytes 1.3 10^3/ul (1.0-4.8); ABS Monocytes 0.4 10^3/ul (0-0.8); ABS Neutrophils 4.5 10^3/ul (1.5-7.7); ABS Nucleated RBC 0 10^3/ul; Eosinophil % 1.6 %; Hematocrit 40 % (35-47); Hemoglobin 13.6 g/dl (12.0-16.0); Lymphocyte % 20.4 %; Mean Corpuscular HGB Conc 34 g/dl (31-36); Mean Corpuscular Hemoglobin 30 pg (27-31); Mean Corpuscular Volume 88 fL (80-97); Mean Platelet Volume 7.9 fL (7.4-10.4); Nucleated Red Blood Cells % 0; Platelet Count 201 10^3/ul (150-450); Red Blood Count 4.59 10^6/ul (4.00-5.40); Red Cell Distribution Width 13 % (10.5-15); White Blood Count 6.4 10^3/ul (3.5-10.8)
[2018-04-11 15:00] LABS: Activated Partial Thrombo Time 31.9 seconds (26.0-36.3); INR 0.9 (0.77-1.02)
[2018-04-11 15:10] LABS: ALT 17 U/L (7-52); AST 22 U/L (13-39); Albumin 4.2 g/dL (3.2-5.2); Albumin/Globulin Ratio 1.7 (1-3); Alkaline Phosphatase 64 U/L (34-104); Anion Gap 5 mmol/L (2-11); BUN/Creatinine Ratio 18.8 (8-20); Blood Urea Nitrogen 15 mg/dL (6-24); CO2 Carbon Dioxide 28 mmol/L (22-32); Calcium 9.4 mg/dL (8.6-10.3); Chloride 105 mmol/L (101-111); EGFR Non-African American 83.1 (>60); Globulin 2.5 g/dL (2-4); Glucose 97 mg/dL (70-100); Potassium 3.8 mmol/L (3.5-5.0); Sodium 138 mmol/L (135-145); Total Protein 6.7 g/dL (6.4-8.9)
[2018-04-11 15:15] LABS: HCG Pregnancy < 0.60 mIU/mL
[2018-04-11 17:21] LABS: Urine Appearance Clear; Urine Bilirubin Negative (Negative); Urine Blood Negative (Negative); Urine Color Yellow; Urine Glucose Negative (Negative); Urine Ketones Negative (Negative); Urine Nitrite Negative (Negative); Urine Protein Negative (Negative); Urine Specific Gravity 1.009 (1.010-1.030); Urine Urobilinogen Negative (Negative)
[2018-04-11 18:07] VITALS: BP 105/58
== END 2018-04-11 18:06 | disposition home or self-care (01) ==
LOC: ED 12:06
DX: R10.9 Unspecified abdominal pain (principal); E07.9 Disorder of thyroid, unspecified; Z87.442 Personal history of urinary calculi; R10.31 Right lower quadrant pain
CPT/HCPCS: 36415; 76775; 76856; 80053; 81003; 83605; 83690; 84702; 85025; 85610; 85730; 96361; 96374; 96375; 99283; J1885; J2270; J2405

== ENCOUNTER 2018-10-14 18:28 | Emergency (ER) | payer SELFPAY ==
--- NOTE | 2018-10-14 19:19 | ED ---
GI/ HPI - HPI Summary HPI Summary: This patient is a 33 year old female presenting to [facility] with a chief complaint of urogenital problems since 2 hours ago. The patient was sent from [facility] reporting right flank pain radiating to RLQ/pelvis nausea, low grade fever, and urinary urgency. Red blood cells were detected in her urine at urgent care. She states her pain started in her back and it has been tender for a few days. She reports a history of kidney stones and that this feels similar to that episode. She also reports Hx of ovarian cysts. She rates her pain 9/10 in severity. She denies fever, vaginal pain, discharge or bleeding, change in BM , N/V. Medical history is [facility]. - History of Current Complaint Chief Complaint: EDUrogenitalProblems Time Seen by Provider: 10/14/18 19:13 Stated Complaint: KIDNEY STUFF PER PT Hx Obtained From: Patient Onset/Duration: Started Hours Ago Timing: Constant Severity: Severe Current Severity: Severe Pain Intensity: 9 Location of Pain: RLQ, Flank Pain Characteristics: Sharp, Cramping, Aching - Allergy/Home Medications Allergies/Adverse Reactions: Allergies Allergy/AdvReac Type Severity Reaction Status Date / Time No Known Allergies Allergy Verified 10/14/18 18:32 PMH/Surg Hx/FS Hx/Imm Hx Endocrine/Hematology History: Reports: Hx Thyroid Disease Cardiovascular History: Denies: Hx Hypertension Respiratory History: Denies: Hx Chronic Obstructive Pulmonary Disease (COPD) History: Denies: Hx Dialysis Sensory History: Denies: Hx Eye Prosthesis Opthamlomology History: Denies: Hx Legally Blind EENT History: Denies: Hx Deafness Neurological History: Denies: Hx Dementia Psychiatric History: Denies: Hx Autism - Cancer History Cancer Type, Location and Year: None reported - Surgical History Surgery Procedure, Year, and Place: None reported Infectious Disease History: No Infectious Disease History: Denies: History Other Infectious Disease, Traveled Outside the [place] in Last 30 Days - Family History Known Family History: Positive: Hypertension, Renal Disease - kidney stones Negative: Blood Disorder - Social History Alcohol Use: None Substance Use Type: Reports: None Smoking Status (MU): Never Smoked Tobacco Have You Smoked in the Last Year: No Review of Systems Positive: Fever Eyes: Negative ENT: Negative Cardiovascular: Negative Respiratory: Negative Positive: Abdominal Pain, Nausea Genitourinary: Negative Positive: flank pain, urgency, other - Neg: bleeding. Negative: discharge Musculoskeletal: Negative Positive: Other - Back pain Skin: Negative Neurological: Negative Psychological: Normal All Other Systems Reviewed And Are Negative: Yes Physical Exam - Summary Physical Exam Summary: Mildly tender RLQ. Abdominal exam otherwise unremarkable. No CVA tenderness bilaterally. Triage Information Reviewed: Yes Vital Signs On Initial Exam: Initial Vitals Temp Pulse Resp BP Pulse Ox 101.1 F 93 22 139/103 98 10/14/18 18:29 10/14/18 18:29 10/14/18 18:29 10/14/18 18:29 10/14/18 18:29 Vital Signs Reviewed: Yes Appearance: Positive: Well-Appearing - Tearful, in distress, Well-Nourished Skin: Positive: Warm, Dry Head/Face: Positive: Normal Head/Face Inspection Eyes: Positive: Normal, EOMI, BHAVYA ENT: Positive: Normal ENT inspection, Pharynx normal, TMs normal Neck: Positive: Supple, Nontender, No Lymphadenopathy Respiratory/Lung Sounds: Positive: Clear to Auscultation, Breath Sounds Present Cardiovascular: Positive: Normal, RRR Abdomen Description: Positive: Soft. Negative: CVA Tenderness (R), CVA Tenderness (L) Musculoskeletal: Positive: Normal, Strength/ROM Intact Neurological: Positive: Normal, Alert, Oriented to Person Place, Time Psychiatric: Positive: Normal, Affect/Mood Appropriate AVPU Assessment: Alert - [place] Coma Scale Best Eye Response: 4 - Spontaneous Best Motor Response: 6 - Obeys Commands Best Verbal Response: 5 - Oriented Coma Scale Total: 15 Diagnostics - Vital Signs Vital Signs Temp Pulse Resp BP Pulse Ox 10/14/18 18:29 101.1 F 93 22 139/103 98 - Laboratory Result Diagrams: 10/14/18 19:28 10/14/18 19:28 Lab Statement: Any lab studies that have been ordered have been reviewed, and results considered in the medical decision making process. - Ultrasound No standard instances Ultrasound Interpretation Completed By: Radiologist Summary of Ultrasound Findings: Renal: Normal right kidney, no hydronephrosis. ED Provider has reviewed this report. GIGU Course/Dx - Course Course Of Treatment: This patient is a 33 year old female presenting to [facility] with a chief complaint of urogenital problems since 2 hours ago. The patient was sent from [facility] reporting right flank pain radiating to RLQ/ pelvis nausea, low grade fever, and urinary urgency. Red blood cells were detected in her urine at urgent care. She states her pain started in her back and it has been tender for a few days. She reports a history of kidney stones and that this feels similar to that episode. She also reports Hx of ovarian cysts. She rates her pain 9/10 in severity. She denies fever, vaginal pain, discharge or bleeding, change in BM, N/V. Medical history is [facility]'s. Physical exam:Mildly tender RLQ. Abdominal exam otherwise unremarkable. No CVA tenderness bilaterally. Temperature 101.1 Vital signs otherwise within normal limits. Labs unremarkable. UA positive for likely UTI. Chest pending. CT abdomen and pelvis positive for right ovarian cyst. Rx for Bactrim, oxycodone. - Diagnoses Provider Diagnoses: Right ovarian cyst, UTI (urinary tract infection) Discharge - Sign-Out/Discharge Documenting (check all that apply): Patient Departure Patient Received Moderate/Deep Sedation with Procedure: No - Discharge Plan Condition: Stable Disposition: HOME Prescriptions: Oxycodone HCl 5 mg PO TID 2 Days #6 tablet MDD 3 tabs Sulfamethox/Trimethoprim DS* [Bactrim DS 800/160 TAB*] 1 tab PO BID 10 Days #20 tab Patient Education Materials: Ovarian Cyst (ED), Urinary Tract Infection in Women (ED) Referrals: No Primary Care Phys,NOPCP [Primary Care Provider] - Additional Instructions: Take antibiotics as directed. Take pain medication as directed. Return to the ED for any new or worsening symptoms. - Billing Disposition and Condition Condition: STABLE Disposition: Home - Attestation Statements Document Initiated by Nory: Yes Documenting Scribe: Hossein Parker Provider For Whom Nory is Documenting (Include Credential): IRENE Shipman Scribe Attestation: Hossein Coello, scribed for IRENE Shipman on 10/15/18 at 0246. Scribe Documentation Reviewed: Yes Provider Attestation: The documentation as recorded by the Hossein flor accurately reflects the service I personally performed and the decisions made by me, IRENE Shipman Status of Scribe Document: Viewed
[2018-10-14] MEDS ORDERED: NS 0.9% 1000 ML** 1,000 ML IV ONE ×2 (19:22→21:05)
[2018-10-14] MEDS ORDERED: Morphine 4 MG/ML VIAL (1 ml) 4 MG/ML VIAL IV ONE (19:23)
[2018-10-14] MEDS ORDERED: Ondansetron INJ* 2 MG/ML VIAL IV ONE (19:23)
[2018-10-14 19:34] LABS: ABS Eosinophils 0.1 10^3/ul (0-0.6); ABS Lymphocytes 1.2 10^3/ul (1.0-4.8); ABS Monocytes 0.6 10^3/ul (0-0.8); ABS Neutrophils 5.8 10^3/ul (1.5-7.7); Hematocrit 41 % (35-47); Lymphocyte % 15.8 %; Mean Corpuscular HGB Conc 35 g/dL (31-36); Mean Corpuscular Hemoglobin 30 pg (27-31); Mean Corpuscular Volume 88 fL (80-97); Mean Platelet Volume 8.2 fL (7.4-10.4); Nucleated Red Blood Cells % 0.2; Platelet Count 183 10^3/uL (150-450); Red Blood Count 4.63 10^6 /uL (3.70-4.87); Red Cell Distribution Width 13 % (10-15); White Blood Count 7.7 10^3/uL (3.5-10.8)
[2018-10-14 19:37] LABS: Urine Appearance Clear; Urine Bacteria 1+ (Absent); Urine Bilirubin Negative (Negative); Urine Blood 2+ (Negative); Urine Color Yellow; Urine Glucose Negative (Negative); Urine Ketones Negative (Negative); Urine Nitrite Negative (Negative); Urine Protein Negative (Negative); Urine Red Blood Cell 2+(6-10/hpf) (Absent); Urine Specific Gravity 1.003 (1.010-1.030); Urine Squamous Epithelial Cell Present (Absent); Urine Urobilinogen Negative (Negative); Urine White Blood Cell 3+(>20/hpf) (Absent)
[2018-10-14] MEDS ORDERED: diPHENhydraMINE IV* 50 MG/ML 1 ml VIAL (BENADRYL) IV ONE (19:41)
[2018-10-14 19:52] LABS: ALT 23 U/L (7-52); AST 32 U/L (13-39); Albumin 4.4 g/dL (3.2-5.2); Albumin/Globulin Ratio 1.5 (1-3); Alkaline Phosphatase 69 U/L (34-104); Anion Gap 7 mmol/L (2-11); BUN/Creatinine Ratio 14.9 (8-20); Blood Urea Nitrogen 11 mg/dL (6-24); C Reactive Protein 10.59 mg/L (<8.01); CO2 Carbon Dioxide 25 mmol/L (22-32); Calcium 9.8 mg/dL (8.6-10.3); Chloride 103 mmol/L (101-111); EGFR African American 110.1 (>60); Globulin 2.9 g/dL (2-4); Glucose 94 mg/dL (70-100); Potassium 3.9 mmol/L (3.5-5.0); Sodium 135 mmol/L (135-145); Total Protein 7.3 g/dL (6.4-8.9)
[2018-10-14 19:58] LABS: HCG Pregnancy < 0.60 mIU/mL
[2018-10-14] MEDS ORDERED: Acetaminophen TAB* 325 MG PO ONE (20:05)
[2018-10-14] MEDS ORDERED: cefTRIAXone(*) 1 GM in NS 0.9% 50 ML* 50 ML IVPB ONE (21:05)
[2018-10-14] MEDS ORDERED: Iohexol 300* (CONTRAST) 10 ML SDV IV ONE (22:45)
[2018-10-15] MEDS ORDERED: oxyCODONE TAB* 5 MG TAB PO ONE (00:22)
[2018-10-15] MEDS ORDERED: Ondansetron ODT TAB* 4 MG PO ONE (00:22)
[2018-10-15 00:48] VITALS: BP 111/66
--- NOTE | 2018-10-16 14:51 | PN ---
Progress Note - Progress Note Date of Service: 10/14/18 Note: Urine culture growing 50-75k e. coli. Pt. treated with Bactrim which is susceptible. No change in treatment needed at this time.
== END 2018-10-15 00:41 | disposition home or self-care (01) ==
LOC: ED 18:28
DX: N39.0 Urinary tract infection, site not specified (principal); N83.201 Unspecified ovarian cyst, right side
CPT/HCPCS: 36415; 74177; 76775; 80053; 81003; 81015; 83605; 83690; 84702; 85025; 86140; 87077; 87086; 87186; 96361; 96374; 96375; 99284; A9270-GY; J0696; J1200; J2270; J2405; Q9967